=== PATIENT | male | born 2000 | race Caucasian/White ===

== ENCOUNTER 2024-12-05 00:38 | Emergency (ER) | payer BC, SELFPAY ==
[2024-12-05 00:39] VITALS: BP 150/92
[2024-12-05 04:04] VITALS: BP 127/93
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
== END 2024-12-05 05:00 | disposition home or self-care (01) ==
LOC: EMR 00:38
PROVIDERS: EMERGENCY PHYSICIAN Emergency Medicine
DX: S09.90XA Unspecified injury of head, initial encounter (principal); R03.0 Elevated blood-pressure reading, without diagnosis of hypertension; W18.39XA Other fall on same level, initial encounter
CPT/HCPCS: 99284; 70450